=== PATIENT | female | born 1965 | race Caucasian/White ===

== ENCOUNTER 2021-07-27 14:25 | Emergency (ER) | payer MEDICAID, OTHER ==
[~2021-07-27] VITALS: Ht 157.5 cm; Wt 87.1 kg
[2021-07-27 14:39] VITALS: BP 181/107
[2021-07-27] MEDS ORDERED: HYDROCODONE/APAP 5/325MG TABLET ONE (14:51)
[2021-07-27] MEDS ORDERED: HYDROCODONE/APAP 5/325MG TABLET PO ONE (15:00)
[2021-07-27] MEDS ORDERED: TRAM50TA2 PO (15:44)
== END 2021-07-27 16:05 | disposition home or self-care (01) ==
LOC: ER 14:30
DX: S82.492A Other fracture of shaft of left fibula, initial encounter for closed fracture (principal); I10 Essential (primary) hypertension; F17.200 Nicotine dependence, unspecified, uncomplicated; X50.1XXA Overexertion from prolonged static or awkward postures, initial encounter; Y93.01 Activity, walking, marching and hiking; Y92.89 Other specified places as the place of occurrence of the external cause; Y99.8 Other external cause status
CPT/HCPCS: 73590-TC; 73610-TC